=== PATIENT | female | born 1990 | race African-American/Black ===

== ENCOUNTER 2023-09-04 01:09 | Emergency (ER) | payer OTHER ==
[~2023-09-04] VITALS: Ht 165.1 cm; Wt 55.0 kg
[2023-09-04 01:13] VITALS: BP 125/91; PULSE 103; RESP 17; TEMP 98.3; O2SAT 97
[2023-09-04] MEDS ORDERED: TETRACAINE 0.5% OPHTH DROPS 4ML BOTHEYE ONE (02:15)
[2023-09-04] MEDS: ACETAMINOPHEN 325MG TABLET PO STA (02:27)
[2023-09-04 02:37] LABS: CLARITY URINE CLEAR (CLEAR); COLOR URINE YELLOW (YELLOW); GLUCOSE URINE NEGATIVE (NEGATIVE); KETONES URINE NEGATIVE (NEGATIVE); LEUKOCYTE ESTERASE URINE NEGATIVE (NEGATIVE); NITRITE URINE NEGATIVE (NEGATIVE); OCCULT BLOOD URINE 3+ (NEGATIVE); PROTEIN URINE TRACE (NEGATIVE); UROBILINOGEN URINE 0.2 E.U./dL (0.2-1.0)
[2023-09-04 02:46] LABS: *AMPHETAMINES SCREEN URINE NEGATIVE (NEGATIVE); *BARBITURATES SCREEN URINE NEGATIVE (NEGATIVE); *BENZODIAZEPINES SCREEN URINE NEGATIVE (NEGATIVE); *COCAINE SCREEN URINE NEGATIVE (NEGATIVE); CANNABINOID URINE SCREEN PRESUMPTIVE POSITIVE (NEGATIVE); ECSTASY MDMA SCREEN URINE NEGATIVE (NEGATIVE); METHADONE URINE SCREEN Neg (NEGATIVE); OPIATES URINE SCREEN NEGATIVE (NEGATIVE); PHENCYCLIDINE URINE SCREEN NEGATIVE (NEGATIVE)
[2023-09-04 04:10] LABS: AMORPHOUS SEDIMENT URINE 1+ /lpf; BACTERIA URINE 1+; SQUAMOUS EPITHELIAL CELL URINE FEW /lpf (RARE/1+); WBC URINE 0-2 /hpf (0-2)
[2023-09-04] MEDS ORDERED: NAPR-681 PO (04:11)
== END 2023-09-04 04:40 ==
LOC: ER 01:19
DX: S60.552A Superficial foreign body of left hand, initial encounter (principal); J45.909 Unspecified asthma, uncomplicated; M25.512 Pain in left shoulder; M25.532 Pain in left wrist; M79.642 Pain in left hand; F12.10 Cannabis abuse, uncomplicated; X58.XXXA Exposure to other specified factors, initial encounter; Y93.89 Activity, other specified; Y92.89 Other specified places as the place of occurrence of the external cause; Y99.8 Other external cause status
CPT/HCPCS: 73030; 73110; 73130; 76830; 76856; 80305; 81003; 81025; 99284